=== PATIENT | male | born 1965 | race Caucasian/White ===

== ENCOUNTER → 2017-02-08 | Outpatient (CLI) | payer OTHER | END | disposition home or self-care (01) | LOC: RAD 15:29 | DX: M79.641 Pain in right hand (principal) ==

== ENCOUNTER 2017-10-06 14:17 | Emergency (ER) | payer OTHER ==
[~2017-10-06] VITALS: Wt 86.2 kg
[2017-10-06] MEDS ORDERED: PREDNISONE20 M1 PO (15:38)
[2017-10-06] MEDS ORDERED: ROBITUSSIN DM 105 ML PO (15:38)
[2017-10-06] MEDS ORDERED: FLONASE ALLERG9.9 ML NAS (15:38)
[2017-10-06] MEDS ORDERED: ZYRTEC10 MG PO (15:38)
== END 2017-10-06 16:05 | disposition home or self-care (01) ==
LOC: ED 14:17
DX: B34.9 Viral infection, unspecified (principal)